=== PATIENT | female | born 1965 | race Two or more races ===

== ENCOUNTER → 2018-04-25 | Emergency (ER) | payer OTHER ==
[~2018-04-25] MED LIST: METFORMIN HCL500 MG PO
== END | disposition home or self-care (01) ==
LOC: ER 10:05
DX: E11.65 Type 2 diabetes mellitus with hyperglycemia (principal)

== ENCOUNTER 2018-09-03 19:12 | Emergency (ER) | payer OTHER ==
[~2018-09-03] VITALS: Ht 157.5 cm; Wt 65.8 kg
== END 2018-09-03 20:51 | disposition home or self-care (01) ==
LOC: ER 19:12
DX: R00.2 Palpitations (principal); F06.4 Anxiety disorder due to known physiological condition

== ENCOUNTER 2019-02-11 00:07 | Emergency (ER) | payer OTHER ==
[~2019-02-11] VITALS: Ht 157.5 cm; Wt 83.9 kg
[2019-02-11] MEDS ORDERED: MIRALAX510 GM PO (02:33)
[2019-02-11] MEDS ORDERED: LEVSIN/SL0.125 MG SL (02:33)
== END 2019-02-11 02:53 | disposition home or self-care (01) ==
LOC: ER 00:07
DX: K59.09 Other constipation (principal); R10.31 Right lower quadrant pain

== ENCOUNTER 2020-02-14 14:00 | Emergency (ER) | payer OTHER ==
[~2020-02-14] VITALS: Ht 165.1 cm; Wt 90.7 kg
[~2020-02-14 14:00] MED LIST changes: +LEVSIN/SL0.125 MG SL; +MIRALAX510 GM PO
[2020-02-14] MEDS ORDERED: NORFLEX100MG PO (16:05)
[2020-02-14] MEDS ORDERED: OSEL75CA PO (16:05)
== END 2020-02-14 16:36 | disposition home or self-care (01) ==
LOC: ER 14:00
DX: J11.1 Influenza due to unidentified influenza virus with other respiratory manifestations (principal); M54.89 Other dorsalgia; R07.89 Other chest pain; Z03.818 Encounter for observation for suspected exposure to other biological agents ruled out

== ENCOUNTER 2020-08-30 15:16 | Emergency (ER) | payer OTHER ==
[~2020-08-30] VITALS: Ht 165.1 cm; Wt 83.9 kg
[~2020-08-30 15:16] MED LIST changes: +NORFLEX100MG PO; +OSEL75CA PO
[2020-08-30] MEDS ORDERED: ZYRTEC10 MG PO (18:00)
== END 2020-08-30 18:07 | disposition home or self-care (01) ==
LOC: ER 15:16
DX: B34.9 Viral infection, unspecified (principal); Z11.52 Encounter for screening for COVID-19

== ENCOUNTER → 2021-02-04 | Emergency (ER) | payer OTHER ==
[~2021-02-04] VITALS: Ht 165.1 cm; Wt 87.1 kg
[~2021-02-04] MED LIST changes: +KETO10TA2 PO; +ZYRTEC10 MG PO
== END | disposition home or self-care (01) ==
LOC: ER 11:01
DX: M54.50 Low back pain, unspecified (principal)

== ENCOUNTER 2023-03-19 14:35 | Emergency (ER) | payer OTHER ==
[~2023-03-19] VITALS: Ht 165.1 cm; Wt 85.3 kg
== END 2023-03-19 15:53 | disposition home or self-care (01) ==
LOC: ER 14:35
DX: J10.1 Influenza due to other identified influenza virus with other respiratory manifestations (principal)

== ENCOUNTER 2024-09-28 18:25 | Emergency (ER) | payer OTHER ==
[~2024-09-28] VITALS: Ht 167.6 cm; Wt 81.6 kg
[2024-09-28] MEDS ORDERED: FAMOtidine 10 MG/ML (4ML VIAL) IV ONE (19:15)
[2024-09-28] MEDS ORDERED: ASPIRIN 325 MG TABLET PO NR (19:15)
[2024-09-28] MEDS ORDERED: NITROGLYCERIN 0.4 MG TAB.SUBL SL ONE (19:19)
[2024-09-28] MEDS ORDERED: ASPIRIN 325 MG TABLET.EC PO ONE (19:20)
[2024-09-28] MEDS ORDERED: FAMOTIDINE/PF 20 MG/2 ML VIAL ONE (19:20)
[2024-09-28] MEDS ORDERED: 0.9 % SODIUM CHLORIDE 1,000 ML IV ONE (19:30)
[2024-09-28] MEDS ORDERED: MORPHINE SULFATE 2 MG/ML CARTRIDGE IV ONE (19:30)
[2024-09-28] MEDS ORDERED: NITROGLYCERIN 0.4 MG TAB.SUBL SL NR (19:30)
[2024-09-28 19:48] LABS: BASO % 0.9 % (0.1-1.2); EOS # 0.18 (0.04-0.54); EOS % 3.1 % (0.7-7.0); HEMATOCRIT 40.9 % (34.1-44.9); HEMOGLOBIN 14.3 g/dL (11.2-15.7); LYMPH # 2.14 (1.18-3.74); LYMPH % 36.6 % (19.3-53.1); MEAN CORPUSCULAR HEMOGLOBIN 31.8 pg (25.6-32.2); MONO # 0.56 (0.24-0.82); MONO % 9.6 % (4.7-12.5); NEUT # 2.91 (1.56-6.13); NEUT % 49.6 % (34.0-71.1); PLATELET COUNT 262 K/uL (163-369)
[2024-09-28 20:17] LABS: INR 1.09; PARTIAL THROMBOPLASTIN TIME 23.5 SECONDS (22.0-34.0); PROTHROMBIN TIME 11.8 SECONDS (9.0-11.5)
[2024-09-28 22:30] LABS: ALBUMIN 4.2 gm/dL (3.4-5.0); BILIRUBIN TOTAL 0.45 mg/dL (0.3-1.2); CALCIUM 10.2 mg/dL (8.5-10.1); CREATININE SERUM 0.98 mg/dL (0.55-1.02); GFR 58.09; GLOBULINA 3.7 G/DL (2.4-3.5); POTASSIUM 3.96 mEq/L (3.5-5.1); TOTAL PROTEIN 7.9 gm/dL (6.4-8.2)
[2024-09-28] MEDS ORDERED: NORFLEX100MG PO (23:15)
== END 2024-09-28 23:28 | disposition home or self-care (01) ==
LOC: ER 20:01
PROVIDERS: General Practice
DX: R07.89 Other chest pain (principal); E11.9 Type 2 diabetes mellitus without complications; Z88.0 Allergy status to penicillin; Z88.2 Allergy status to sulfonamides